=== PATIENT | female | born 1980 | race Two or more races ===

== ENCOUNTER 2024-12-08 20:21 | Emergency (ER) | payer MEDICAID, OTHER ==
[~2024-12-08] VITALS: Ht 160 cm; Wt 68.0 kg
[2024-12-08 21:07] LABS: Urine Protein, UAD Negative (Negative)
--- NOTE | 2024-12-08 21:16 | ED.PDOC ---
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 Patient endorses on being 7-8 weeks , currently, and having sudden, unprovoked, and atraumatic onset of vaginal bleeding, this evening. She states this being her 3rd ([id number]). No recent prior elements, injuries, sexual activity, or pertinent medical, surgical, or social history. Patient denies having any nausea, vomiting, abdominal pain, urinary symptoms, lightheadedness, or further associated symptoms. Chief Complaint: Vaginal Bleed Time Seen by MD: 20:30 Reviewed Notes: Nurses Notes, Medications, Allergies Information Source: Patient Mode of Arrival: Wheelchair Timing: Hours Prehospital treatment: None Severity: Moderate Vaginal Discharge: None Vaginal Lesions: None Bleeding Quality: Bright Red Vaginal Mass: None Onset Of Mass/Bleeding: Spontaneous Sexual Activity: Last Consensual [place]: Weeks Control: None History of: Current Blood Type: Unknown Associated Signs and Symptoms: Vaginal Bleeding Past Medical History PAST MEDICAL HISTORY: Denies Surgical History: Denies all surgeries TOPSTITCHER LOCKSTITCH History: Denies all TOPSTITCHER LOCKSTITCH Hx 3 Para 2 AB 0 Family History Family History: Unknown Social History Smoker: Non-Smoker Alcohol: Denies ETOH Use Drugs: Denies Drug Use Lives In: Home All Other Systems: Reviewed and Negative (Comprehensive systems review obtained and negative except for what is stated in the HPI.) Physical Exam General Appearance: No Apparent Distress, Normal HEENT: Normal ENT Inspection, Pharynx Normal, TMs Normal Neck: Full Range of Motion, Non-Tender, Normal, Normal Inspection Respiratory: Chest Non-Tender, Lungs Clear, No Accessory Muscle Use, No Respiratory Distress, Normal Breath Sounds Cardiovascular: No Edema, No JVD, No Murmur, No Gallop, Normal Peripheral Pulses, Regular Rate/Rhythm Breast Exam: Deferred Gastrointestinal: No Organomegaly, No Pulsatile Mass, Normal Bowel Sounds, Soft, Suprapubic (mild tenderness ), Tenderness (mild to suprapubic area ) Genitalia: Deferred Pelvic: Deferred Rectal: Deferred Extremities: No calf tenderness, Normal capillary refill, Normal inspection, Normal range of motion, Non-tender, No pedal edema Musculoskeletal : Apperance: Normal Neurologic: Alert, 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 Was a procedure done?: No Differential Diagnosis (TOPSTITCHER LOCKSTITCH) Vaginal Bleeding: - Complete, - Incomplete, - Inevitable, - Missed, - Threatened, Blood Loss Anemia, Ectopic , Hormonal, Menorrhagia, Menstrual Bleeding, PID, UTI, Vaginitis X-Ray, Labs, Meds, VS Vital Signs Date Time Temp Pulse Resp B/P (MAP) Pulse Ox O2 Delivery O2 Flow Rate FiO2 12/08/24 23:33 98.3 67 14 95/59 (71) 98 98.3 12/08/24 20:22 99.8 71 18 101/42 99 99.8 Lab Test 12/08/24 20:51 12/08/24 20:40 Range/Units Beta HCG, Quantitative 2596.8 H 1.5-4.2 mIU/mL Urine Color Light-yellow Yellow Urine Clarity Clear Clear Urine pH 7.0 5.0-9.0 Urine Specific [place] 1.010 1.001-1.035 Urine Protein Negative Negative Urine Ketones Negative Negative Urine Blood 3+ H Negative /uL Urine Nitrite Negative Negative Urine Bilirubin Negative Negative Urine Urobilinogen Normal Negative mg/dL Urine Leukocyte Esterase 2+ Negative /uL Urine RBC 18 0 - 4 /hpf Urine Microscopic WBC 9 H 0-5 /HPF Urine Squamous Epithelial Cells Few <5 /hpf Urine Bacteria Few H None Seen /hpf Urine Glucose Normal Normal mg/dL Time of 1ST Reevaluation: 21:00 Reevaluation 1ST: Unchanged Patient Education/Counseling: Diagnosis, Treatment, Prognosis, Need For Follow Up Family Education/Counseling: Diagnosis, Treatment, Prognosis, Need For Follow Up Comments Patient has a viable IUP on ultrasound. She is currently not actively bleeding. She has threatened miscarriage of an early . She also has signs of a UTI by urinalysis. Patient is stable for discharge to practice pelvic rest and was started on Keflex. 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 Additional Information Previous visits reviewed: N/A The following tests were ordered, and results were reviewed by me: ABO Rh type, UA, Rh type, beta hCG quant, Ob transvaginal ultrasound Additional Information was gathered from interviewing the following independent historians: N/A I reviewed and agreed with the following test results read by other providers: Ob transvaginal ultrasound I discussed treatment and results with medical personnel and: patient and spouse Departure 1 Departure Time of Disposition: 00:05 Impression: Primary Impression: Threatened miscarriage in early Additional Impression: Urinary tract infection Qualified Codes: N30.01 - Acute cystitis with hematuria Disposition: HOME / SELF CARE / HOMELESS Condition: Good e-Prescriptions Cephalexin Monohydrate (Cephalexin) 500 Mg Cap 500 MG PO Q6HR for 7 Days, #28 TAB 0 Refills Prov: ANDREW GAYLE MD 12/09/24 Discharged With: Self, Spouse Critical Care Note Critical Care Time?: No Stability Stability form required: No Heart Score Heart Score: Heart Score Response (Comments) Value History N/A 0 EKG N/A 0 Age N/A 0 Risk Factors N/A 0 Troponin N/A 0 Total 0 I personally scribed for ANDREW GAYLE MD ([email or web address]) on 12/08/24 at 21:16. Electronically submitted by Trevor Lara ([email or web address]). I personally scribed for ANDREW GAYLE MD ([email or web address]) on 12/08/24 at 21:17. Electronically submitted by Trevor Lara ([email or web address]). ANDREW GAYLE MD Dec 08, 2024 21:16
[2024-12-08 23:33] VITALS: BP 95/59; PULSE 67; RESP 14; TEMP 98.3; O2SAT 98
--- NOTE | 2024-12-08 23:40 | DVH ---
OB ULTRASOUND <14 WEEKS: HISTORY: bleeding TECHNIQUE: Multiple real-time grayscale sonographic images of the pelvis with duplex Doppler color f low, spectral and M-mode analysis. FINDINGS: The uterus measures 10.0 x 6.0 x 6.0 cm. 3.5 cm possible uterine fibroid. The endometrium measures 16 mm. Right ovary measures 2.7 x 1.6 x 1.8 cm with normal Doppler color flow Left ovary measures 2.9 x 2.9 x 3.1 cm with normal Doppler color flow. There is a 2.6 cm left adnexa l cyst. Probable 6 mm gestational sac in the endometrium. A probable small yolk sac is seen. IMPRESSION: 1. Probable small gestational sac, close clinical and sonographic follow-up is suggested.
[2024-12-09] MEDS ORDERED: CEPH500C PO (00:07)
== END 2024-12-09 01:06 | disposition home or self-care (01) ==
LOC: ER 20:21
DX: O20.0 Threatened abortion (principal); O23.41 Unspecified infection of urinary tract in pregnancy, first trimester; Z3A.08 8 weeks gestation of pregnancy; N39.0 Urinary tract infection, site not specified
CPT/HCPCS: 36415; 76801; 76817; 81001; 84702; 86900; 86901